=== PATIENT | male | born 1945 | race Caucasian/White ===

== ENCOUNTER 2022-05-30 18:48 | Emergency (ER) | payer OTHER ==
[2022-05-30 19:03] VITALS: BP 163/83; PULSE 98; RESP 18; TEMP 97.9; BMI 30.1
[2022-05-30] MEDS ORDERED: TETANUS AND DIPHTHERIA TOXOID 0.5 ML DISP.SYRIN IM ONE (19:30)
[2022-05-30] MEDS ORDERED: DIPHTH,PERTUSS(ACELL),TET 0.5 ML DISP.SYRIN IM ONE (19:32)
== END 2022-05-30 20:55 | disposition home or self-care (01) ==
LOC: JER 18:48
PROC: 3E0234Z Introduction of Serum, Toxoid and Vaccine into Muscle, Percutaneous Approach (ICD-10-PCS; principal; 2022-05-30)
DX: S09.90XA Unspecified injury of head, initial encounter (principal); W19.XXXA Unspecified fall, initial encounter
CPT/HCPCS: 70450-TC; 70486-TC; 72125-TC; 82962; 99284-25